=== PATIENT | male | born 1995 | race Caucasian/White ===

== ENCOUNTER 2022-10-28 02:59 | Emergency (ER) | payer BC ==
[2022-10-28 03:19] LABS: BASOPHILS ABSOLUTE AUTO 0.04 K/uL (0.00-0.10); BASOPHILS PERCENT AUTO 0.5 % (0.1-1.3); EOSINOPHILS ABSOLUTE AUTO 0.15 K/uL (0.00-0.40); EOSINOPHILS PERCENT AUTO 1.9 % (0.0-5.4); HEMATOCRIT 45.1 % (38.4-49.7); HEMOGLOBIN 16.1 g/dL (12.9-16.9); IMMATURE GRAN ABSOLUTE AUTO 0.03 K/uL (0.00-0.23); IMMATURE GRAN PERCENT AUTO 0.4 % (0.0-0.7); LYMPHOCYTES ABSOLUTE AUTO 3.35 K/uL (0.8-3.3); LYMPHOCYTES PERCENT AUTO 43.1 % (11.4-47.7); MEAN CORPUSCULAR HGB CONC 35.7 g/dL (31.6-35.5); MEAN CORPUSCULAR VOLUME 86.9 fL (81.4-99.0); MONOCYTES ABSOLUTE AUTO 0.61 K/uL (0.20-0.90); MONOCYTES PERCENT AUTO 7.8 % (3.3-12.6); NEUTROPHILS PERCENT AUTO 46.3 % (40.0-78.1); PLATELET COUNT,PLT 202 K/uL (130-375); RED BLOOD CELL COUNT 5.19 M/uL (4.14-5.76); WHITE BLOOD CELL COUNT,WBC 7.8 K/uL (3.2-11.0)
[2022-10-28] MEDS ORDERED: Aspirin 81 MG Tab.Chew PO ONE (03:20)
[2022-10-28] MEDS ORDERED: Sodium Chloride 0.9% 10 ML Syringe FLUSH PRN (03:20)
[2022-10-28] MEDS ORDERED: Sodium Chloride 0.9% 500 ML IV ONE (03:20)
[2022-10-28] MEDS ORDERED: Sodium Chloride 0.9% 1,000 ML IV ONE (03:25)
[2022-10-28 03:37] LABS: INR 1.1; PROTHROMBIN TIME 10.9 sec (9.2-10.6); PTT,PARTIAL THROMBOPLSTIN TIME 25.4 sec (21.8-27.3)
[2022-10-28 03:39] LABS: CALCIUM 8.8 mg/dL (8.5-10.1); EST CRCL DRUG DOSING (CG) 109.25 mL/min; POTASSIUM,K 3.3 mmol/L (3.6-5.2); TROPONIN I HIGH SENSITIVITY 4.2 pg/mL (<=60.3)
[2022-10-28 03:41] LABS: ANION GAP 12.3 mmol/L (5.0-14.0)
[2022-10-28] MEDS ORDERED: Heparin Sodium 5,000 Units/ML Vial IVPUSH ONE (03:51)
[2022-10-28] MEDS ORDERED: Heparin Sodium/D5W 25,000 UNITS/500 ML BAG IV SCH (04:00)
[2022-10-28 04:22] LABS: AMPHETAMINES SCREEN, URINE NEGATIVE (NEGATIVE); BARBITURATE SCREEN,URINE NEGATIVE (NEGATIVE); BENZODIAZEPINES SCREEN,URINE NEGATIVE (NEGATIVE); METHADONE SCREEN, URINE NEGATIVE (NEGATIVE); METHAMPHETAMINES SCREEN, URINE NEGATIVE (NEGATIVE); OXYCODONE SCREEN,URINE NEGATIVE (NEGATIVE); PROPOXYPHENE SCREEN,URINE NEGATIVE (NEGATIVE); THC SCREEN,URINE 50 NG/ML NEGATIVE (NEGATIVE)
[2022-10-28] MEDS ORDERED: Calcium Carbonate 500 MG Tab.Chew PO ONE (04:35)
[2022-10-28] MEDS ORDERED: Pantoprazole 40 MG Vial IVPUSH ONE (04:36)
[2022-10-28 04:48] LABS: LYME AB IgG Negative (Negative)
[2022-10-28 04:56] LABS: LYME AB IgM Negative (Negative)
[2022-10-28] MEDS ORDERED: Ketorolac 30 MG/ML SDV IVPUSH ONE (05:03)
== END 2022-10-28 05:33 | disposition home or self-care (01) ==
LOC: JP.ED 02:59
DX: R00.1 Bradycardia, unspecified (principal); E87.6 Hypokalemia; R07.9 Chest pain, unspecified; R19.7 Diarrhea, unspecified
CPT/HCPCS: 36415; 71045; 80048; 80305; 80307; 83735; 84443; 84484; 85025; 85379; 85610; 85730; 86618; 93005; 96361; 96374; 96375; 99285; A9270; C9113; J1885; J3490; J7030